=== PATIENT | male | born 1945 | race Caucasian/White ===

== ENCOUNTER 2024-06-07 08:39 | Emergency (ER) | payer MEDICARE, OTHER ==
[2024-06-07 09:14] LABS: BASOPHILS ABSOLUTE AUTO 0.04 K/uL (0.00-0.10); BASOPHILS PERCENT AUTO 0.6 % (0.1-1.3); EOSINOPHILS PERCENT AUTO 3.2 % (0.0-5.4); HEMATOCRIT 43.5 % (38.4-49.7); HEMOGLOBIN 14.4 g/dL (12.9-16.9); IMMATURE GRAN PERCENT AUTO 0.3 % (0.0-0.7); LYMPHOCYTES ABSOLUTE AUTO 1.69 K/uL (0.8-3.3); LYMPHOCYTES PERCENT AUTO 26.9 % (11.4-47.7); MEAN CORPUSCULAR HEMOGLOBIN 30.1 pg (31.6-35.5); MEAN CORPUSCULAR HGB CONC 33.1 g/dL (31.6-35.5); MONOCYTES ABSOLUTE AUTO 0.79 K/uL (0.20-0.90); MONOCYTES PERCENT AUTO 12.6 % (3.3-12.6); NEUTROPHILS ABSOLUTE AUTO 3.54 K/uL (1.0-7.6); NEUTROPHILS PERCENT AUTO 56.4 % (40.0-78.1); PLATELET COUNT,PLT 186 K/uL (130-375); RED BLOOD CELL COUNT 4.78 M/uL (4.14-5.76); WHITE BLOOD CELL COUNT,WBC 6.3 K/uL (3.2-11.0)
[2024-06-07 09:15] LABS: IMMATURE GRAN ABSOLUTE AUTO 0.02 K/uL (0.00-0.23)
[2024-06-07 09:35] LABS: A/G RATIO 1.1 (1.2-2.2); ALANINE AMINOTRANSFERASE,ALT 24 U/L (12-78); ALBUMIN 3.4 g/dL (3.4-5.0); ALKALINE PHOSPHATASE 62 U/L (46-116); ANION GAP 9.6 mmol/L (5.0-14.0); ASPARTATE AMNIOTRANSFERASE,AST 15 U/L (15-37); BLOOD UREA NITROGEN,BUN 11 mg/dL (7-18); CALCIUM 8.9 mg/dL (8.5-10.1); CARBON DIOXIDE,CO2 26 mmol/L (21-32); CHLORIDE,CL 105 mmol/L (100-108); CREATININE 1.3 mg/dL (0.8-1.3); EST CRCL DRUG DOSING (CG) 50.68 mL/min; ESTIMATED GFR 57 mL/min (>60); GLUCOSE RANDOM 104 mg/dL (74-106); PROTEIN TOTAL,TP 6.5 g/dL (6.4-8.2); SODIUM,NA 141 mmol/L (140-148)
[2024-06-07 09:36] LABS: C-REACTIVE PROTEIN < 0.50 mg/dL (<0.50)
[2024-06-07 09:40] LABS: LACTIC ACID 0.9 mmol/L (0.4-2.0)
[2024-06-07 10:29] LABS: APPEARANCE,URINE CLEAR (CLEAR); BILIRUBIN,URINE NEGATIVE (NEGATIVE); COLOR,URINE YELLOW (YELLOW); GLUCOSE,URINE NEGATIVE (NEGATIVE); KETONES,URINE NEGATIVE (NEGATIVE); LEUKOCYTE ESTERASE,URINE NEGATIVE (NEGATIVE); NITRITE,URINE NEGATIVE (NEGATIVE); OCCULT BLOOD,URINE NEGATIVE (NEGATIVE); PROTEIN,URINE NEGATIVE (NEGATIVE); UROBILINOGEN,URINE 0.2 EU/dL (0.2-1.0)
[2024-06-07 10:36] LABS: AMORPHOUS SEDIMENT,URINE RARE; BACTERIA,URINE NOT SEEN; EPITHELIAL CELLS,URINE NOT SEEN; MUCUS,URINE NOT SEEN; RBC,URINE NOT SEEN (0-5); WBC,URINE NOT SEEN (0-5)
[2024-06-07] MEDS: Ondansetron 4 MG Tab.DIS PO ONE (11:32)
== END 2024-06-07 12:05 | disposition home or self-care (01) ==
LOC: JP.ED 08:39
DX: G30.9 Alzheimer's disease, unspecified (principal); F02.80 Dementia in other diseases classified elsewhere, unspecified severity, without behavioral disturbance, psychotic disturbance, mood disturbance, and anxiety; Z88.8 Allergy status to other drugs, medicaments and biological substances; Z79.899 Other long term (current) drug therapy
CPT/HCPCS: 36415; 70450; 80053; 81001; 83605; 85025; 86140; 99285; Q0162